=== PATIENT | male | born 1975 | race Caucasian/White ===

== ENCOUNTER 2021-03-25 11:56 | Emergency (ER) | payer MEDICARE, OTHER ==
[2021-03-25 12:06] VITALS: BP 143/96; PULSE 83; TEMP 98; BMI 29.9
[2021-03-25 14:00] LABS: BASO % 0.5 % (0-2.0); EOS % 6.7 % (0-4.5); HEMATOCRIT 44.1 % (35.4-49); HEMOGLOBIN 15.7 GM/dL (11.7-16.9); LYMPH % 24.5 % (8-40); MCH 32.8 pg (25.7-33.7); MCHC 35.7 g/dl (32.0-35.9); MEAN PLT VOLUME 8.9 fl (7.5-11.1); MONO % 13.2 % (3.8-10.2); NEUT % 55.1 % (42.8-82.8); PLATELET COUNT 192 10^3/uL (134-434); RBC 4.79 M/mm3 (4.00-5.60); RDW 12.3 % (11.9-15.9); WHITE BLOOD COUNT 6.5 K/mm3 (4.0-10.0)
[2021-03-25 14:16] LABS: URINE APPEARANCE CLEAR; URINE BILIRUBIN NEGATIVE (NEGATIVE); URINE COLOR YELLOW; URINE GLUCOSE (UA) NEGATIVE (NEGATIVE); URINE KETONE NEGATIVE (NEGATIVE); URINE LEUK ESTERASE NEGATIVE (NEGATIVE); URINE NITRITE NEGATIVE (NEGATIVE); URINE PROTEIN NEGATIVE (NEGATIVE); URINE UROBILINOGEN 0.2 mg/dL (0.2-1.0)
[2021-03-25 14:29] LABS: CHLORIDE 101 mmol/L (98-107); SODIUM 138 mmol/L (136-145)
[2021-03-25 14:31] LABS: CALCIUM 9.2 mg/dL (8.5-10.1)
[2021-03-25 14:32] LABS: ANION GAP 11 MMOL/L (8-16); BLOOD UREA NITROGEN 10.6 mg/dL (7-18); CO2 26 mmol/L (21-32); GLUCOSE,RANDOM 98 mg/dL (74-106)
[2021-03-25 14:36] LABS: BILIRUBIN,TOTAL 0.6 mg/dL (0.2-1); CREATININE 0.9 mg/dL (0.55-1.3); SGOT/AST 34 U/L (15-37); SGPT/ALT 41 U/L (13-61); TOT PROT 7.3 g/dl (6.4-8.2)
[2021-03-25 14:38] LABS: ALK PHOS 95 U/L (45-117)
[2021-03-25 15:06] LABS: N-TERMINAL BNP 75.6 pg/ml (5-125)
== END 2021-03-25 16:45 | disposition home or self-care (01) ==
LOC: JER 11:56
DX: R60.0 Localized edema (principal)
CPT/HCPCS: 36415; 80053; 81003; 82550; 82553; 83036; 83880; 84484; 85025; 93005; 93010; 99284-25